=== PATIENT | female | born 1950 | race Caucasian/White ===

== ENCOUNTER 2017-12-11 12:00 | Inpatient (IN) | payer OTHER ==
[~2017-12-11] VITALS: Ht 154.9 cm; Wt 67.1 kg
[2017-12-11] MEDS ORDERED: ACTOS45 MG PO (13:23)
[2017-12-11] MEDS ORDERED: GLIMEPIRIDE1 MG PO (13:23)
[2017-12-11] MEDS ORDERED: COZAAR50 MG PO (13:23)
[2017-12-11] MEDS ORDERED: LANTU (13:24)
[2017-12-25] MEDS ORDERED: COLACE100 MG PO (09:25)
[2017-12-25] MEDS ORDERED: PERCOCET 5-3251 EACH PO (09:27)
[2017-12-25] MEDS ORDERED: CLONAZEPAM1 MG PO (09:27)
== END 2017-12-26 13:02 | disposition home or self-care (01) | DRG 472 ==
LOC: O/R 12-25 04:40 → SURH 12-25 07:00 → PED 12-25 14:41
PROVIDERS: Orthopaedic Surgery Orthopaedic Surgery of the Spine
PROC: 0RT30ZZ Resection of Cervical Vertebral Disc, Open Approach (ICD-10-PCS; 2017-12-25)
PROC: 07DS3ZZ Extraction of Vertebral Bone Marrow, Percutaneous Approach (ICD-10-PCS; 2017-12-25)
PROC: 0RG20A0 Fusion of 2 or more Cervical Vertebral Joints with Interbody Fusion Device, Anterior Approach, Anterior Column, Open Approach (ICD-10-PCS; principal; 2017-12-25 07:00)
DX: M47.12 Other spondylosis with myelopathy, cervical region (principal); M50.023 Cervical disc disorder at C6-C7 level with myelopathy; I10 Essential (primary) hypertension; E11.9 Type 2 diabetes mellitus without complications